=== PATIENT | female | born 1985 | race Caucasian/White ===

== ENCOUNTER → 2020-10-17 | Outpatient (CLI) | payer BC, OTHER ==
[~2020-10-17] MED LIST: CLARITIN-D 241 EACH PO; NORCO 5-325 TA1 EACH PO; VITAMIN D31250 MCG PO
== END ==
LOC: KOH-I 13:24
DX: J32.9 Chronic sinusitis, unspecified (principal); R51.9 Headache, unspecified
CPT/HCPCS: 70486